=== PATIENT | female | born 1995 | race Caucasian/White ===

== ENCOUNTER 2017-03-06 12:33 | Emergency (ER) | payer BC, OTHER ==
[~2017-03-06] VITALS: Ht 172.7 cm; Wt 75.0 kg
[2017-03-06 12:39] VITALS: Ht 172.7 cm; Wt 75.0 kg
[2017-03-06] MEDS ORDERED: BCPILLS PO (12:47)
[2017-03-06] MEDS ORDERED: VENL1CAP92 PO (12:47)
[2017-03-06] MEDS ORDERED: SODIUM CHLORIDE 0.9% 1000ML 2,000 ML IV STA (12:52)
[2017-03-06] MEDS ORDERED: LORAZEPAM 2 MG/ML 1 ML VIAL IV STA (12:52)
[2017-03-06] MEDS ORDERED: ONDANSETRON INJ 2 MG/ML 2 ML VIAL IV STA (12:52)
--- NOTE | 2017-03-06 13:01 | EMERGENCY ROOM VISIT NOTE ---
History Report prepared by Sammy: Kamron Cobb Under the Supervision of: Dr. Librado Clarke M.D. First contact with patient: 12:46 Chief Complaint: DIARRHEA Stated Complaint: ANXIOUS,NUMBNESS,VOMITING,DIARRHEA Nursing Triage Summary: pt to the ED with n/v/d after drinking last night no pain History of Present Illness The patient is a 21 year old female who presents to the Emergency Room with complaints of persistent vomiting and diarrhea beginning this morning. She also complains of numbness in her hands, facial tingling, diarrhea, vomiting, and resolved abdominal pain. She notes that she had 6-7 alcoholic drinks last night. She states that she drank a lot more than she would usually drink. The patient states that she feels very anxious as well. She states that none of her friends who were with her last night have experienced similar symptoms. She denies any black or bloody stool, or blood in her vomit. She denies any chest pain, or neck pain. She states that none of her symptoms were present last night. The patient is on an antidepressant and control. She denies any chance of . She has a history of anxiety. Source of History: patient Onset: This morning Quality: other (vomiting and diarrhea) Timing: other (persistent) Associated Symptoms: + abdominal pain (resolved), + numbness (in hands), No neck pain, No chest pain, No melena, No hematochezia Note: The patient denies any blood in her vomit. She also complains of facial tingling. Review of Systems See HPI for pertinent positives & negatives. A total of 10 systems reviewed and were otherwise negative. Past Medical & Surgical Medical Problems: (1) Anxiety Family History No pertinent family history stated. Social History Housing Status: lives with family Current/Historical Medications Scheduled Control Pills ( Control Pills), 1 TAB PO DAILY Ondasetron Odt (Zofran Odt), 4 MG SL Q6H Venlafaxine Hcl (Effexor Xr), 37.5 MG PO QAM Allergies Coded Allergies: No Known Allergies (Unverified , 03/06/17) Physical Exam Vital Signs Date Time Temp Pulse Resp B/P (MAP) Pulse Ox O2 Delivery O2 Flow Rate FiO2 03/06/17 14:44 88 16 111/69 99 03/06/17 14:04 37.0 93 16 109/67 100 Room Air 6/17/17 12:39 36.4 92 20 121/85 98 Room Air Physical Exam GENERAL: Patient is in no acute distress. HEENT: No acute trauma, normocephalic atraumatic, mucous membranes moist, no nasal congestion, no scleral icterus. No throat erythema or exudate NECK: No stridor, no adenopathy, no meningismus, trachea is midline. LUNGS: Clear to auscultation bilaterally, no wheeze, no rhonchi, breath sounds equal. HEART: Without murmurs gallops or rubs, regular rate and rhythm. ABDOMEN: Soft, nontender, bowel sounds positive, no hernias, no peritonitis. EXTREMITIES: No cyanosis or edema, full range of motion of all the joints without pain or difficulty, no signs for acute trauma. NEUROLOGIC: Oriented x 3, no acute motor or sensory deficits, no focal weakness. SKIN: No rash, no jaundice, no diaphoresis. Medical Decision & Procedures Laboratory Results 03/06/17 13:10 Red Blood Count 4.51, Mean Corpuscular Volume 86.5, Mean Corpuscular Hemoglobin 30.4, Mean Corpuscular Hemoglobin Concent 35.1, Mean Platelet Volume 9.5, Neutrophils (%) (Auto) 73.6, Lymphocytes (%) (Auto) 19.9, Monocytes (%) (Auto) 5.9, Eosinophils (%) (Auto) 0.2, Basophils (%) (Auto) 0.2, Neutrophils # (Auto) 3.48, Lymphocytes # (Auto) 0.94, Monocytes # (Auto) 0.28, Eosinophils # (Auto) 0.01, Basophils # (Auto) 0.01 03/06/17 13:10 Test 03/06/17 13:10 03/06/17 13:15 White Blood Count 4.73 K/uL (4.8-10.8) Red Blood Count 4.51 M/uL (4.2-5.4) Hemoglobin 13.7 g/dL (12.0-16.0) Hematocrit 39.0 % (37-47) Mean Corpuscular Volume 86.5 fL (80-100) Mean Corpuscular Hemoglobin 30.4 pg (25-34) Mean Corpuscular Hemoglobin Concent 35.1 g/dl (32-36) Platelet Count 201 K/uL (130-400) Mean Platelet Volume 9.5 fL (7.4-10.4) Neutrophils (%) (Auto) 73.6 % Lymphocytes (%) (Auto) 19.9 % Monocytes (%) (Auto) 5.9 % Eosinophils (%) (Auto) 0.2 % Basophils (%) (Auto) 0.2 % Neutrophils # (Auto) 3.48 K/uL (1.4-6.5) Lymphocytes # (Auto) 0.94 K/uL (1.2-3.4) Monocytes # (Auto) 0.28 K/uL (0.11-0.59) Eosinophils # (Auto) 0.01 K/uL (0-0.5) Basophils # (Auto) 0.01 K/uL (0-0.2) RDW Standard Deviation 37.3 fL (36.4-46.3) RDW Coefficient of Variation 11.7 % (11.5-14.5) Immature Granulocyte % (Auto) 0.2 % Immature Granulocyte # (Auto) 0.01 K/uL (0.00-0.02) Anion Gap 9.0 mmol/L (3-11) Est Creatinine Clear Calc Drug Dose 120.7 ml/min Estimated GFR () 133.0 Estimated GFR (Non- 114.7 BUN/Creatinine Ratio 10.7 (10-20) Calcium Level 8.8 mg/dl (8.5-10.1) Magnesium Level 2.0 mg/dl (1.8-2.4) Total Bilirubin 0.5 mg/dl (0.2-1) Aspartate Amino Transf (AST/SGOT) 26 U/L (15-37) Alanine Aminotransferase (ALT/SGPT) 26 U/L (12-78) Alkaline Phosphatase 62 U/L (45-117) Total Protein 7.9 gm/dl (6.4-8.2) Albumin 4.1 gm/dl (3.4-5.0) Globulin 3.8 gm/dl (2.5-4.0) Albumin/Globulin Ratio 1.1 (0.9-2) Thyroid Stimulating Hormone (TSH) 1.300 uIu/ml (0.300-4.500) Human Chorionic Gonadotropin, Qual NEG (NEG) Urine Color YELLOW Urine Appearance CLEAR (CLEAR) Urine pH 8.5 (4.5-7.5) Urine Specific [place] 1.005 (1.000-1.030) Urine Protein NEG (NEG) Urine Glucose (UA) NEG (NEG) Urine Ketones NEG (NEG) Urine Occult Blood 2+ (NEG) Urine Nitrite NEG (NEG) Urine Bilirubin NEG (NEG) Urine Urobilinogen NEG (NEG) Urine Leukocyte Esterase NEG (NEG) Urine WBC (Auto) 0 /hpf (0-5) Urine RBC (Auto) 0-4 /hpf (0-4) Urine Hyaline Casts (Auto) 0 /lpf (0-5) Urine Epithelial Cells (Auto) 0-5 /lpf (0-5) Urine Bacteria (Auto) NEG (NEG) Laboratory results reviewed by me. Medications Administered Medications (Trade) Dose Ordered Sig/Debora Route Start Time Stop Time Status Last Admin Dose Admin Sodium Chloride 2,000 ml @ 999 mls/hr Q2H1M STAT IV 03/06/17 12:52 03/06/17 14:52 DC 03/06/17 13:04 999 MLS/HR Ondansetron HCl (Zofran Inj) 4 mg NOW STAT IV 03/06/17 12:52 03/06/17 12:54 DC 03/06/17 13:03 4 MG Lorazepam (Ativan Inj) 1 mg NOW STAT IV 03/06/17 12:52 03/06/17 12:54 DC 03/06/17 13:03 1 MG ECG Indication: vomiting Rate (beats per minute): 85 Rhythm: sinus rhythm Findings: PVC, no acute ischemic change ED Course 1247: The patient was evaluated in room A3. A complete history and physical exam was performed. 1252: Ordered Ativan Inj 1 mg IV, Zofran Inj 4 mg IV, Sodium Chloride 2000 ml @ 999 mls/hr IV. 1432: Reevaluated the patient. She feels better. Discussed results and discharge instructions: she verbalized understanding and agreement. The patient is ready for discharge. Medical Decision The patient is a 21 year old female who presents to the ED with complaints of anxiety, vomiting and diarrhea. Differential diagnoses considered include alcohol induced vomiting, dehydration, viral illness, , UTI, thyroid disorder, and electrolyte imbalance. There is no leukocytosis or concerning anemia. No significant electrolyte abnormality, kidney failure or hepatitis. The patient appears to be in a euthyroid state. Urinalysis does not show infection. testing is negative. On exam, there are no focal neurologic deficits. She had no signs of peritonitis, she was not toxic or febrile. EKG showed a sinus rhythm, no acute ischemia. The patient received IV saline, IV Ativan and IV Zofran, she feels significantly improved. I do think she can be discharged. I suspect she had too much alcohol last evening and this induced her vomiting and other symptoms today. She is doing well and is being discharged home. Medication Reconciliation: I attest that I have personally reviewed the patient' s current medication list. Blood Pressure Screening: Patient was found to have normal blood pressure on screening and does not require follow-up. Impression Primary Impression: Nausea vomiting and diarrhea Additional Impression: Anxiety Scribe Attestation The scribe's documentation has been prepared under my direction and personally reviewed by me in its entirety. I confirm that the note above accurately reflects all work, treatment, procedures, and medical decision making performed by me. Departure Information Dispostion Home / Self-Care Prescriptions Ondasetron Odt (ZOFRAN ODT) 4 Mg Tab 4 MG SL Q6H for Nausea, #12 TAB Prov: Librado Clarke M.D. 03/06/17 Referrals Rochelle Webster D.O. (PCP) Forms HOME CARE DOCUMENTATION FORM, IMPORTANT VISIT INFORMATION, WORK / SCHOOL INSTRUCTIONS Patient Instructions My [facility] Additional Instructions fluids rest bland diet--crackers, soup, toast, gatorade zofran 1 tab every 6 hours for nausea return if worsening Problem Qualifiers
[2017-03-06 13:22] LABS: BASO % 0.2 %; BASO ABS # 0.01 K/uL (0-0.2); COMPLETE YES; EOS % 0.2 %; IG% 0.2 %; LYMPH % 19.9 %; LYMPH ABS # 0.94 K/uL (1.2-3.4); MEAN CELL VOLUME 86.5 fL (80-100); MEAN CORPUSCULAR HEMOGLOBIN 30.4 pg (25-34); MEAN CORPUSCULAR HGB CONC 35.1 g/dl (32-36); MEAN PLATELET VOLUME 9.5 fL (7.4-10.4); MONO % 5.9 %; NEUT % 73.6 %; PLATELET COUNT 201 K/uL (130-400); RED BLOOD COUNT 4.51 M/uL (4.2-5.4); WHITE BLOOD COUNT 4.73 K/uL (4.8-10.8)
[2017-03-06 13:28] LABS: URINE APPEARANCE CLEAR (CLEAR); URINE BILIRUBIN NEG (NEG); URINE COLOR YELLOW; URINE EPITHELIAL CELL AUTO 0-5 /lpf (0-5); URINE NITRITE NEG (NEG); URINE PH 8.5 (4.5-7.5); URINE SPECIFIC GRAVITY 1.005 (1.000-1.030); UROBILINOGEN NEG (NEG); ZZUR CULT IF INDIC CLEAN CATCH NO
[2017-03-06 13:31] LABS: MANUAL MICROSCOPIC REQUIRED? NO; REVIEW REQ? NO
[2017-03-06 13:40] LABS: BUN/CREATININE RATIO 10.7 (10-20); CALCIUM 8.8 mg/dl (8.5-10.1); CREATININE 0.75 mg/dl (0.60-1.20); POTASSIUM 3.7 mmol/L (3.5-5.1)
[2017-03-06 13:45] LABS: PREG INTERNAL NEGATIVE QC NEG CLEAR BACKGROUND; PREG INTERNAL POSITIVE QC POS CONTROL LINE
[2017-03-06 13:50] LABS: ALB/GLOB RATIO 1.1 (0.9-2); THYROID STIMULATING HORMONE 1.3 uIu/ml (0.300-4.500)
[2017-03-06 14:04] VITALS: TEMP 37
[2017-03-06] MEDS ORDERED: ONDA4TAB10 SL (14:32)
[2017-03-06 14:44] VITALS: BP 111/69; PULSE 88; O2SAT 99
== END 2017-03-06 14:45 | disposition home or self-care (01) ==
LOC: C.EDB 12:34 → C.EDA 14:45
DX: R11.2 Nausea with vomiting, unspecified (principal); R19.7 Diarrhea, unspecified; F41.9 Anxiety disorder, unspecified; Z79.899 Other long term (current) drug therapy; Z79.3 Long term (current) use of hormonal contraceptives